=== PATIENT | male | born 1995 | race Caucasian/White ===

== ENCOUNTER 2016-10-10 21:10 | Observation (INO) | payer OTHER ==
[~2016-10-10] VITALS: Ht 185.4 cm; Wt 158.3 kg
[2016-10-10 21:51] VITALS: BP 137/94; PULSE 103; O2SAT 98
--- NOTE | 2016-10-10 22:55 | ED.REPORT ---
HPI-Extremity Problem Upper Date of Service Oct 10, 2016 ED Provider: Joni Trejo PA-C [place] is an otherwise healthy 20-year-old male presents emergency Department with left biceps pain. Patient reports restarting weightlifting after an extended hiatus 3 days ago. Reports a lot of biceps exercises. Today complains of pain in his bilateral biceps although most acutely in his left. He has difficulty moving his arm or lifting objects. Complains of occasional numbness in his left forearm. Denies acute trauma, fever, chills, feeling ill, history of DVT. Nursing Notes Stated Complaint: LEFT MUSCULAR ARM PAIN Chief Complaint: Extremity Trauma Nursing Notes Reviewed: Yes Allergies: Coded Allergies: amoxicillin (Verified Allergy, Severe, Anaphylaxis, 10/10/16) General Time Seen by MD: 22:45 Chief Complaint Arm injury left Past Medical History Past Medical History Denies Review of Systems Review of Systems Note: Negative unless stated otherwise in history of present illness Physical Exam General: Well appearing, well developed, well nourished, no acute distress. Left shoulder: Nontender, normal to inspection Left arm: Diffusely tender most acutely at the insertion of the biceps. negative redness, swelling, heat. Diameter is roughly equal to right. Left elbow: Nontender, extremely reduced range of motion, held in 90 flexion. Patient resists extension. Left hand/wrist: Radial pulses 2+, sensation and brisk capillary refill intact in distal phalanges. Hand is warm. Head: Atraumatic, normocephalic. Eyes: No scleral icterus or injection. No discharge. Vision grossly intact. ENT: Voice clear, hearing grossly intact. Respiratory: Regular rate and rhythm. Breath sounds present, clear to auscultation and equal bilaterally. No respiratory distress. No increased work of breathing, speaks in complete sentences. Cardiovascular: Regular rate and rhythm, without murmur, gallop or rub. No pedal edema. Gastrointestinal: Abdomen flat and non-tender without guarding or rebound. Bowel sounds normoactive. Skin: Warm and dry. Neurological: Grossly nonfocal. Psychological: Alert and oriented. Speech appropriate, linear and logical. Behavior appropriate. Initial Vital Signs Vital Signs (First) Date Time Temp Pulse Resp B/P Pulse Ox O2 Delivery O2 Flow Rate FiO2 10/10/16 21:51 37.0 103 137/94 98 Room Air Tachycardia, elevated blood pressure Re-Eval/Medical Decision Med Decision/Clinical Course 20-year-old male complaining of left bicep pain after restarting weight lifting recently. Recall no acute trauma. Pain is bilateral, more acute on the left than right. Denies symptoms concerning for cellulitis, DVT. On Physical examination his left arm is held in flexion, patient resists range of motion at the shoulder and the elbow. Tender diffusely over the tricep and bicep, most acutely at the insertion of the biceps. Neurovascularly intact distal. I discussed case with Dr. Bermudez who recommends getting a CPK to rule out rhabdomyolysis. No indication for x-rays. Very low concern for DVT, referred cardiac pain, fracture. CBC, CMP and CPK are ordered. Treatment is initiated with 60 mg IM ketorolac, 975 mg acetaminophen. Plan to discharge with [facility] follow-up if normal. Care transferred to Dr. Bermudez at shift change. Discharge & Departure Impression: Primary Impression: Muscle soreness Disposition: Home Discharge Condition All VS Reviewed: Yes Condition: Stable Additional Instructions: Evaluation in the emergency department for left arm pain includes interview, physical examination and blood work all of which are reassuring this is not caused by an immediately dangerous condition. We believe he is stable and safe to go home. The pain in her arms or some ulcer related to your recent return to weightlifting. This is most likely simply soreness rather than a tear. I recommend rest, ice. The pain is best treated with 500 mg of naproxen (Aleve) every 12 hours, or 1000 mg of acetaminophen (Tylenol) every 6 hours. These drugs can be taken at the same time for more severe pain. If this is not completely resolved in about a week, I will provide to the referral to an orthopedic surgeon, who you can see for further evaluation. Return to emergency department for any new or worsening symptoms including increasing pain, tea-colored urine, abdominal pain. Referrals: Donnie Pena MD EDSupervising Provider for APC: Jonathon Bermudez DO copies to: Donnie Pena MD, Seth PA-C Oct 10, 2016 22:54
[2016-10-10 23:55] LABS: Mean Corpuscular Hemoglobin 28.9 pg (27.0-35.0); Mean Corpuscular Volume 83.2 fL (81-100)
[2016-10-11] MEDS ORDERED: 0.9% Sodium Chloride 1,000 ML IV SCH ×3 (00:40→08:14)
[2016-10-11] MEDS ORDERED: HYDROmorphone 0.5 mg/0.5 mL iSecure Syringe IVPUSH ONE (01:55)
[2016-10-11] MEDS ORDERED: HYDROcodone-APAP 5-325 mg Tablet PO ONE (03:40)
[2016-10-11 06:00] VITALS: BP 123/72; PULSE 78; RESP 20; O2SAT 96
[2016-10-11] MEDS ORDERED: Ondansetron 2 mg/mL 2 mL Inj IVPUSH PRN (08:15)
[2016-10-11] MEDS ORDERED: Polyethylene Glycol (PEG) 17 Gm Powder PO PRN (08:15)
[2016-10-11] MEDS ORDERED: Alum-Mag Hydrox-Simeth 30 mL Suspension PO PRN (08:15)
[2016-10-11] MEDS ORDERED: Sodium Acetate Inj 150 MEQ in Dextrose 5% 1,000 ML IV ONE (08:25)
[2016-10-11] MEDS ORDERED: Sodium Chloride LOK Flush 10 mL Syringe IVFLUSH SCH (08:30)
[2016-10-11 08:45] LABS: APPEARANCE,URINE HAZY (CLEAR,HAZY); COLOR,URINE YELLOW (YELLOW); PH,URINE 5.5 (5.0-8.0)
[2016-10-11 08:46] LABS: OCCULT BLOOD,URINE NEGATIVE (NEGATIVE); UROBILINOGEN,URINE NORMAL (NORMAL)
--- NOTE | 2016-10-11 09:13 | PCM.HPMED ---
Subjective Date of Service Oct 11, 2016 Primary Provider: Admitting Physician: Elian Min MD Primary Care Physician: Gideon Attending Physician: Elian Min MD History of Present Illness: Patient is a 20 year healthy male with pmh of ADHD, who is being admitted for rhabdomyolosis. Patient said he worked out 2 days ago , after 5 years. He was feeling fine till yesterday when he couldnt lift up anything, was feeling very sore. He denies any other symptoms. Allergies Coded Allergies: amoxicillin (Verified Allergy, Severe, Anaphylaxis, 10/10/16) Constitutional: No: Chills, Fever, Malaise, Other, Sweats, Weakness Eyes: No: Conjunctivae inflammation, Eyelid inflammation, Other, Pain, Redness , Vision change ENT: No: Ear discharge, Ear pain, Mouth pain, Mouth swelling, Nose congestion, Nose discharge, Nose pain, Other, Throat pain, Throat swelling Respiratory: No: Cough, Dry, Hemoptysis, Other, Pleuritic Pain, SOB with excertion, Shortness of breath, Sputum, Wheezing, Wheezing Gastrointestinal: No: Abdominal Pain, Constipation, Diarrhea, Hematochezia, Melena, Nausea, Other, Vomiting Genitourinary: Negative for: Dysuria, Frequency, Hematuria, Incontinence, Other , Retention Musculoskeletal: : other (as per [id number]) Skin: No: Bruising, Jaundice, Lesions, Other, Rash Neurological: No: Change in speech, Confusion, Incoordination, Numbness, Other , Seizures, Weakness Home Meds No Active Prescriptions or Reported Meds Exam Vital Signs Vital Sign - Last Date Time Temp Pulse Resp B/P Pulse Ox O2 Delivery O2 Flow Rate FiO2 10/11/16 06:00 78 20 123/72 96 Room Air 10/10/16 21:51 37.0 Intake and Output 10/10/16 10/10/16 10/11/16 Cumulative From/Thru 15:00 23:00 07:00 10/10/16 21:51 - 10/11/16 03:07 Intake Total 4000 ml 4000 ml Balance 4000 ml 4000 ml Intake IV Total 4000 ml 4000 ml Exam General: No acute distress, appropriately interactive HEENT: Normocephalic, atraumatic. PERRLA, EOMI, Anicteric sclerae, moist conjunctivae. Neck: No JVD, No bruits. No lymphadenopathy or thyromegaly. Cardiovascular: Regular rate and rhythm with no murmurs, rubs, or gallops appreciated Pulmonary: b/l air sound with no crackles, wheezes, or rhonchi. no use of accessory muscles. Abdomen: +Bowel sound, Soft, nontender, nondistended. Extremities: No clubbing or cyanosis, no lymphedema, no b/l lower leg edema. Mega UE sorness , tender to touch Skin: Normal temperature, turgor, and texture; no rash. No visualized skin ulcer. Neurological: CN II-VII grossly intact, moving equally on all 4 extremities, muscle strength 5 out of 5 on lower legs Psychiatric: Normal mood and affect. AOx3 Lab and Diagnostics Result Diagram: 10/10/16 2313 10/11/16 0642 Assessment & Plan > Rhabdomyolosis - continue IV fluids with oral intake - will trend the CK levels - pain control with tylenol , norco if pain > 8 - will try to avoid nephrotoxins > Elevated AST/ALT - likely not liver based, likely from muscular breakdown - no abdominal signs and symptoms , bili normal - will get hepatitis panel - will monitor Patient likely to stay <2 midnights under observation. Pain Evaluation: Adequate Pain Control Resuscitation Status: CPR: Attempt Resuscitation Time spent 45 mins Elian Min MD Oct 11, 2016 09:13
[2016-10-11 09:15] VITALS: BP 142/100; PULSE 77; RESP 20; O2SAT 96
--- NOTE | 2016-10-11 09:15 | NUR ---
[facility] [place] Received patient via gurney accompanied by ER staff and his significant other. Transferred to bed independently, limited movement to left arm noted. Pain level of 4/10 at this time. Patient stated he can move his arm a little bit higher than earlier. Peripheral IV in place patent and intact. Patient oriented to room and unit. Will continue to monitor. Addendum: 10/11/16 at 1917 by DARLIN TRIPP RN Patient asking if he can be discharge against medical advise since he is not allowed to smoke. He is scheduled for a lab draw at 5:00 tomorrow morning, lab was contacted and they may be able to draw earlier. Specimen will be sent out to [place] and result will not be available anytime soon. Patient aware of the situation and still wanting to be discharge. Patient ask if they can avail a note that he was admitted here at [facility] for work purposes, RN Pediatric Physician Assistant contacted and said we can give a note. NOC Hospitalist informed and aware.
[2016-10-11 16:00] VITALS: BP 140/88; PULSE 72; RESP 20; O2SAT 97
--- NOTE | 2016-10-12 07:34 | PCM.DC.MED ---
Discharge Summary Date of Service Oct 12, 2016 Dates of Hospitalization Date of Hospital Admission Oct 11, 2016 at 08:39 Date of Discharge: Oct 11, 2016 Providers: Admitting Physician: Elian Min MD Primary Care Physician: Gideon Attending Physician: Elian Min MD Brief History Patient is a 20 year healthy male with pmh of ADHD, who is being admitted for rhabdomyolosis. Patient said he worked out 2 days ago , after 5 years. He was feeling fine till yesterday when he couldnt lift up anything, was feeling very sore. He denies any other symptoms. Hospital Course > Rhabdomyolosis - continued IV fluids with oral intake - plan was to trend the CK levels - pain controlled with tylenol , norco if pain > 8 > Elevated AST/ALT - likely not liver based, likely from muscular breakdown - no abdominal signs and symptoms , bili normal - pending hepatitis panel PATIENT SIGNED OUT AMA Exam Vital Signs (Last) Date Time Temp Pulse Resp B/P Pulse Ox O2 Delivery O2 Flow Rate FiO2 10/11/16 16:00 36.8 72 20 140/88 97 Room Air Test 10/10/16 23:13 10/10/16 23:51 10/11/16 07:59 10/11/16 19:27 White Blood Count 12.3th/mm3 (3.8-10.1) Red Blood Count 5.46mil/mm3 (4.40-5.80) Hemoglobin 15.8g/dL (13.8-17.2) Hematocrit 45.4% (41.0-50.0) Mean Corpuscular Volume 83.2fL (81-100) Mean Corpuscular Hemoglobin 28.9pg (27.0-35.0) Mean Corpuscular Hemoglobin Concent 34.8% (32.0-37.0) Red Cell Distribution Width 12.7% (12.3-15.4) Platelet Count 309bil/L (150-400) Hold Avery Top Tube Received (Received) Urine Color Yellow (YELLOW) Urine Appearance Hazy (CLEAR,HAZY) Urine pH 5.5 (5.0-8.0) Urine Specific [place] 1.030 (1.003-1.035) Urine Protein Negativemg/dL (NEG,TRACE) Urine Glucose (UA) Negativemg/dL (NEGATIVE) Urine Ketones Negativemg/dL (NEGATIVE) Urine Occult Blood Negative (NEGATIVE) Urine Nitrite Negative (NEGATIVE) Urine Bilirubin Negative (NEGATIVE) Urine Urobilinogen Normalmg/dL (NORMAL) Urine Leukocyte Esterase Negative (NEGATIVE) Urine RBC 0-2/hpf (0-2) Urine WBC 0-5/hpf (0-5) Urine Epithelial Cells Occasional/hpf (NONE-MOD) Urine Crystals None seen (NONE SEEN) Urine Bacteria None/hpf (NONE-FEW) Urine Hyaline Casts None/lpf (NONE) Urine Granular Casts None seen (NONE SEEN) Urine Waxy Casts None seen (NONE SEEN) Urine Red Blood Cell Casts None seen (NONE SEEN) Urine White Blood Cell Casts None seen (NONE SEEN) Urine Mucus Present (None Seen) Urine Trichomonas None seen (NONE SEEN) Urine Yeast None (NONE SEEN) Urinalysis Comment None Urine Culture Reflexed Not indicated Hold Urine Received (Received) Sodium Level 137mEq/L (134-144) Potassium Level 4.0mEq/L (3.5-5.2) Chloride Level 101mEq/L (97-108) Carbon Dioxide Level 22mmol/L (18-29) Blood Urea Nitrogen 15mg/dL (6-20) Creatinine 0.67mg/dL (0.76-1.27) Estimat Glomerular Filtration Rate 158mL/min (>59) Glucose Level 103mg/dL (60-99) Calcium Level 9.0mg/dL (8.5-10.1) Total Bilirubin 0.6mg/dL (0.0-1.2) Aspartate Amino Transf (AST/SGOT) 167U/L (0-50) Alanine Aminotransferase (ALT/SGPT) 66U/L (0-44) Alkaline Phosphatase 94U/L (25-150) Total Creatine Kinase 8294U/L (21-232) Total Protein 6.4g/dL (6.4-8.4) Albumin 3.9g/dL (3.4-5.0) Hepatitis C Comment . Discharge Medications No Active Prescriptions or Reported Meds Elian Min MD Oct 12, 2016 07:34
[2016-10-12 10:11] LABS: Hepatitis A Antibody IgM Negative (Negative); Hepatitis B Core Antibody IgM Negative (Negative)
== END 2016-10-11 19:43 | disposition left against medical advice (07) ==
LOC: SED 21:10 → MOC 10-11 08:39
PROVIDERS: ADMIT Internal Medicine; ATTEND Internal Medicine
DX: M62.82 Rhabdomyolysis (principal); R74.8 Abnormal levels of other serum enzymes; M79.1 Myalgia; X50.0XXA Overexertion from strenuous movement or load, initial encounter; Y93.73 Activity, racquet and hand sports; Y99.8 Other external cause status; Y92.9 Unspecified place or not applicable; F90.9 Attention-deficit hyperactivity disorder, unspecified type; Z53.21 Procedure and treatment not carried out due to patient leaving prior to being seen by health care provider
CPT/HCPCS: 36415; 80048; 80053; 81000; 82550; 85027; 86705; 86709; 87340; 87341; 96372; 96374; 99285; G0378; G0472; J1170; J1885; J7030; J7070